=== PATIENT | male | born 1990 | race Caucasian/White ===

== ENCOUNTER 2017-04-05 21:49 | Emergency (ER) | payer BC ==
--- NOTE | 2017-04-05 22:02 | EDM.PDOC ---
ED HPI GENERAL MEDICAL PROBLEM - General Chief Complaint: Upper Extremity Injury/Pain Stated Complaint: RT ARM, [id number] Time Seen by Provider: 04/05/17 21:56 Source of Information: Reports: Patient History Limitations: Reports: No Limitations - History of Present Illness INITIAL COMMENTS - FREE TEXT/NARRATIVE: 26 yo white male c/o right arm pain after hit w/ hockey stick w/o shoulder pads Onset: Today Onset Date: 04/05/17 Onset Time: 21:00 Duration: Hour(s): Location: Reports: Upper Extremity, Right Quality: Reports: Ache Severity: Moderate Improves with: Reports: None Worsens with: Reports: None Context: Reports: Activity, Trauma (playing hockey) Associated Symptoms: Reports: No Other Symptoms Right Upper Arm Pain Score (Numeric/FACES): 7 - Related Data Allergies Allergy/AdvReac Type Severity Reaction Status Date / Time No Known Allergies Allergy Verified 04/05/17 21:53 Home Meds: Home Meds . [No Known Home Meds] 04/05/17 [History] Review of Systems - Review of Systems Review Of Systems: See Below Constitutional: Reports: No Symptoms Eyes: Reports: No Symptoms Ears: Reports: No Symptoms Nose: Reports: No Symptoms Mouth/Throat: Reports: No Symptoms Respiratory: Reports: No Symptoms Cardiovascular: Reports: No Symptoms GI/Abdominal: Reports: No Symptoms Genitourinary: Reports: No Symptoms Musculoskeletal: Reports: Arm Pain (right mid humerus) Skin: Reports: Erythema Neurological: Reports: No Symptoms Psychiatric: Reports: No Symptoms ED EXAM, GENERAL - Physical Exam Exam: See Below Exam Limited By: No Limitations General Appearance: Alert, WD/WN, No Apparent Distress Eye Exam: Bilateral Eye: EOMI, PERRL Ears: Normal External Exam Nose: Normal Inspection Throat/Mouth: Normal Inspection Head: Atraumatic Neck: Normal Inspection Respiratory/Chest: No Respiratory Distress Cardiovascular: Normal Peripheral Pulses Peripheral Pulses: 2+: Radial (L), Radial (R) GI/Abdominal: Normal Bowel Sounds Back Exam: Normal Inspection Extremities: Normal Inspection, Arm Pain (right mid shaft) Neurological: Alert, Oriented, CN II-XII Intact Psychiatric: Normal Affect Skin Exam: Warm, Dry, Intact, Normal Color, No Rash Lymphatic: No Adenopathy Course - Vital Signs Last Recorded V/S: Last Vital Signs Temp 36.8 C 04/05/17 21:51 Pulse 91 11/05/17 21:51 Resp 18 04/05/17 21:51 BP 133/81 04/05/17 21:51 Pulse Ox 100 04/05/17 21:51 - Orders/Labs/Meds Orders: Active Orders 24 hr Category Date Time Status Humerus Rt [CR] Urgent Exams 04/05/17 21:54 Taken Departure - Departure Time of Disposition: 22:20 Disposition: Home, Self-Care 01 Condition: Good Clinical Impression: Contusion of arm, right Qualifiers: Encounter type: initial encounter Qualified Code(s): S40.021A - Contusion of right upper arm, initial encounter - Discharge Information Forms: ED Department Discharge Additional Instructions: Rest Apply ice pack to area TID X 15 MINS. For pain try MOTRIN 600mg TID OR TYLENOL ES 500mg QID ( both otc) F/U w/ PCP - My Orders Last 24 Hours: My Active Orders 04/05/17 21:54 Humerus Rt [CR] Urgent - Assessment/Plan Last 24 Hours: My Active Orders 04/05/17 21:54 Humerus Rt [CR] Urgent
== END 2017-04-05 22:30 | disposition home or self-care (01) ==
LOC: DL.ED 21:49
DX: S40.021A Contusion of right upper arm, initial encounter (principal); W21.19XA Struck by other bat, racquet or club, initial encounter; Y93.22 Activity, ice hockey
CPT/HCPCS: 73060-RT; 99283

== ENCOUNTER 2022-06-24 14:11 | Emergency (ER) | payer OTHER, BC ==
[2022-06-24] MEDS ORDERED: Bacitracin Oint 1 GM U/D Packet TOP ONE (14:21)
[2022-06-24] MEDS ORDERED: Lidocaine 1% 10 ML MDV INJECT ONE (14:21)
[2022-06-24] MEDS ORDERED: Diphtheria,Pertussis(Acell),Tetanus Vaccine 0.5 ML Syringe IM ONE (14:21)
== END 2022-06-24 15:33 | disposition home or self-care (01) ==
LOC: DL.ED 14:11
DX: S61.011A Laceration without foreign body of right thumb without damage to nail, initial encounter (principal); Z23 Encounter for immunization; W26.8XXA Contact with other sharp object(s), not elsewhere classified, initial encounter; Y99.0 Civilian activity done for income or pay
CPT/HCPCS: 12001; 73140-F5; 90471; 90715; 99282; 99283-25; A9270-GY; J3490

== ENCOUNTER 2023-05-25 19:10 | Emergency (ER) | payer BC, OTHER ==
[2023-05-25] MEDS ORDERED: Acetaminophen 500 MG Tab PO ONE (19:27)
[2023-05-25 20:10] LABS: CORONAVIRUS COVID-19 NAA NEGATIVE (NEGATIVE); INFLUENZA A NAA POSITIVE (NEGATIVE); INFLUENZA B NAA NEGATIVE (NEGATIVE); RESPIRATORY SYNCYTIAL VIR NAA NEGATIVE (NEGATIVE)
== END 2023-05-25 20:35 | disposition home or self-care (01) ==
LOC: DL.ED 19:10
DX: J10.1 Influenza due to other identified influenza virus with other respiratory manifestations (principal); F17.210 Nicotine dependence, cigarettes, uncomplicated; Z86.16 Personal history of COVID-19; Z20.822 Contact with and (suspected) exposure to COVID-19
CPT/HCPCS: 0241U; 87081; 87430; 99284; A9270

== ENCOUNTER 2023-12-23 21:59 | Emergency (ER) | payer BC | END 2023-12-23 22:59 | disposition home or self-care (01) | LOC: DL.ED 21:59 | DX: S93.401A Sprain of unspecified ligament of right ankle, initial encounter (principal); Z86.16 Personal history of COVID-19; X50.9XXA Other and unspecified overexertion or strenuous movements or postures, initial encounter; Y93.64 Activity, baseball | CPT/HCPCS: 73610-RT; 99282; 99283 ==